=== PATIENT | male | born 1970 | race American Indian/Alaskan Native ===

== ENCOUNTER 2021-06-21 07:32 | Day surgery (SDC) | payer BC ==
[2021-06-21] MEDS ORDERED: LACTATED RINGERS 1,000 ML ONE (08:10)
[2021-06-21] MEDS: MIDAZOLAM 2 MG/2 ML INJ IV SCH ×2 (08:20→08:55)
--- NOTE | 2021-06-21 08:46 | Anesthesia Day of Surgery ---
Anesthesia Day of Surgery - Day of Surgery Patient Examined: Yes Patient H&P Reviewed: Yes Patient is NPO: Yes
--- NOTE | 2021-06-21 08:47 | Anesthesia Consultation ---
Anesthesia Consult and Med Hx Date of service: 06/21/21 - Airway Anesthetic Teeth Evaluation: Good ROM Head & Neck: Adequate Mental/Hyoid Distance: Adequate Mallampati Class: Class II Intubation Access Assessment: Good - Pre-Operative Health Status ASA Pre-Surgery Classification: ASA3 Proposed Anesthetic Plan: General - Pulmonary Hx Smoking: No Hx Sleep Apnea: Yes - Cardiovascular System Hx Hypertension: Yes - Hematic Hx Sickle Cell Disease: No - Other Systems Hx Obesity: Yes
[2021-06-21] MEDS ORDERED: HYDROmorphone 1 MG/1 ML INJ ONE (08:51)
[2021-06-21] MEDS ORDERED: propofoL 200 MG/20 ML VIAL IV ONE (08:51)
[2021-06-21] MEDS ORDERED: ACETAMINOPHEN 500 MG TAB PO SCH (09:00)
[2021-06-21] MEDS ORDERED: MAGNESIUM OXIDE 400 MG TAB PO SCH (09:00)
[2021-06-21] MEDS ORDERED: ONDANSETRON 4 MG/2 ML INJ IV PRN (09:00)
[2021-06-21] MEDS ORDERED: HYDROmorphone 1 MG/1 ML INJ IV SCH (09:00)
[2021-06-21] MEDS ORDERED: HYDROmorphone 1 MG/1 ML INJ IV PRN (09:00)
[2021-06-21] MEDS ORDERED: LACTATED RINGERS 1,000 ML IV SCH (09:00)
[2021-06-21] MEDS ORDERED: SODIUM CHLORIDE 0.9% IRR 1,500 ML BOTTLE IR ONE (10:06)
[2021-06-21] MEDS ORDERED: ONDANSETRON 4 MG/2 ML INJ ONE (10:50)
[2021-06-21] MEDS ORDERED: LIDOCAINE MPF (2%) 20 MG/1 ML VIAL 5 ML ONE (10:50)
--- NOTE | 2021-06-21 10:50 | Short Stay Summary ---
Short Stay Documentation Date of service: 06/21/21 - History H&P: obtained from office - Allergies and Medications Current Medications: Allergies No Known Allergies Allergy (Unverified 06/21/21 07:58) Home Medications Medication Instructions Recorded Confirmed Last Taken Type Lisinopril 20 mg PO DAILY 06/21/21 06/21/21 06/18/21 History Active Medications Acetaminophen (Acetaminophen 500 Mg Tab) 1,000 mg PO ONCE DIXIE Stop: 06/21/21 21:00 Last Admin: 06/21/21 09:00 Dose: 1,000 mg Documented by: Hydromorphone HCl (Hydromorphone 1 Mg/1 Ml Inj) 1 mg IV ONCE DIXIE Stop: 06/21/21 21:00 Last Admin: 06/21/21 08:20 Dose: 1 mg Documented by: Hydromorphone HCl (Hydromorphone 1 Mg/1 Ml Inj) 0.25 mg IV Q10MIN PRN PRN Reason: Pain, Moderate (4-6) Stop: 06/21/21 18:00 Hydromorphone HCl (Hydromorphone 1 Mg/1 Ml Inj) 0.5 mg IV Q10MIN PRN PRN Reason: Pain , Severe (7-10) Stop: 06/21/21 18:00 Cefazolin Sodium 3 gm/ Sodium (Chloride) 100 mls @ 100 mls/30 min IV PREOP NR; Protocol Stop: 06/21/21 21:00 Lactated Ringer's (Lactated Ringers) 1,000 mls @ 100 mls/hr IV DIRECT DIXIE Last Admin: 06/21/21 08:15 Dose: 100 mls/hr Documented by: Magnesium Oxide (Magnesium Oxide 400 Mg Tab) 400 mg PO ONCE DIXIE Stop: 06/21/21 21:00 Last Admin: 06/21/21 09:00 Dose: 400 mg Documented by: Midazolam HCl (Midazolam 2 Mg/2 Ml Inj) 2 mg IV ONCE DIXIE Stop: 06/21/21 21:00 Last Admin: 06/21/21 08:55 Dose: 2 mg Documented by: Ondansetron HCl (Ondansetron 4 Mg/2 Ml Inj) 4 mg IV ONCE PRN PRN Reason: Nausea And Vomiting Stop: 06/21/21 21:00 - Brief post op/procedure progress note Date of procedure: 06/21/21 Pre-op diagnosis: priapism Post-op diagnosis: same Procedure: aspiration & irrigation of priapism Anesthesia: GETA Surgeon: MANJIT GUZMAN Condition: stable - Hospital course Hospital course: bactrim & norco on chart - Disposition Condition at discharge: Stable Disposition: DC-01 TO HOME OR SELFCARE Short Stay Discharge Plan Follow up with: PERCY PHOENIX MD [Primary Care Provider] - 7 Days
[2021-06-21] MEDS: HYDROmorphone 1 MG/1 ML INJ IV PRN ×4 (11:03→11:33)
[2021-06-21] MEDS ORDERED: HYDROcodone/ACETAMINOPHEN 5-325 MG TAB PO PRN (11:33)
[2021-06-21 12:07] VITALS: BP 153/91
--- NOTE | 2021-06-21 12:43 | Operative Report ---
DATE OF SURGERY: 06/21/2021 PREOPERATIVE DIAGNOSIS: Priapism. POSTOPERATIVE DIAGNOSIS: Priapism. PROCEDURE: Aspiration and irrigation of priapism. SURGEON: Parth Rojas MD ANESTHESIA: General. ESTIMATED BLOOD LOSS: Minimal. FLUIDS: Crystalloid. COMPLICATIONS: No complications. INDICATIONS: This patient is a 50-year-old gentleman states he was returning from [place] on Saturday, where he developed priapism at 2 in the morning. He presented to the Emergency Room in , they irrigated his penis with mild amount of detumescence. He subsequently presented to my office yesterday, Saturday, over 48 hours after his priapism with persistence of the priapism. Attempts to irrigate in the office were unsuccessful due to pain. The patient wants to proceed with irrigation and possible shunt in the OR. Risks, benefits and complications were explained including permanent impotence. He understands and wishes to proceed. DESCRIPTION OF PROCEDURE: The patient was taken to the operative suite, placed in a supine position. After adequate general anesthesia, was prepped and draped in a sterile fashion. Phillip catheter was placed on the operative field. Clear urine could be appreciated. A 15-gauge dialysis needles were used, 2 were placed in the midshaft area. Attempts to irrigate this rigid penis, was able to insert small amounts of saline in increments of 10-20 mL with very little return of blood on aspiration. Injected in several places to allow saline to break up the clot and finally on the right, went through the glans penis into the corporal body on the right side, was able to get some blood fluid return with partial detumescence. I was able to squeeze the penis to get some fluid out and now it is about a 50% erection. The patient tolerated the procedure well and Mummy wrap was placed and an ice pack. He will go home with a Phillip and will take it out in the morning. TID: [id number] RECEIPT: [id number] [facility]/ALL/CLEM
--- NOTE | 2021-06-21 15:19 | Post Anesthesia Evaluation ---
- Post Anesthesia Evaluation Patient Participated: Yes Airway Patent: Yes Stable Respiratory Function: Yes Nausea/Vomiting: No Temp > 96.8F: Yes Pain Manageable: Yes Adequeate Hydration: Yes Anesthesia Complications: No Block Receding Appropriately: Not Applicable Patient on Ventilator: No
== END 2021-06-21 12:45 | disposition home or self-care (01) ==
LOC: OR 07:32
PROVIDERS: ATTEND Urology
DX: N48.30 Priapism, unspecified (principal); I10 Essential (primary) hypertension; G47.30 Sleep apnea, unspecified; E66.9 Obesity, unspecified; Z79.899 Other long term (current) drug therapy; Z98.890 Other specified postprocedural states
CPT/HCPCS: 54220; J0690; J1170; J2250; J2405; J2704; J7120